=== PATIENT | male | born 1955 | race Caucasian/White ===

== ENCOUNTER 2017-01-21 10:33 | Outpatient (CLI) | payer OTHER ==
--- NOTE | 2017-01-21 11:51 | XRAY Report ---
THREE VIEW LEFT KNEE: 01/21/2017 CLINICAL HISTORY: Knee pain. FINDINGS: There is a small suprapatellar joint effusion. There is no acute fracture or focus of destruction. Multicompartment degenerative changes are noted with mediolateral and patellofemoral narrowing, subchondral sclerosis and osteophytic formation. There is mild chondrocalcinosis involving the medial and lateral compartments. IMPRESSION: 1. MULTICOMPARTMENT DEGENERATIVE CHANGES. 2. CHONDROCALCINOSIS - PROBABLE CPPD. JOB #: [id number] EXT JOB #: [id number] [facility]
== END 2017-01-21 10:34 | disposition home or self-care (01) ==
LOC: DI 10:33
PROVIDERS: ATTEND Nurse Practitioner Family
DX: M17.12 Unilateral primary osteoarthritis, left knee (principal); M11.262 Other chondrocalcinosis, left knee

== ENCOUNTER 2018-03-11 17:02 | Emergency (ER) | payer BC, OTHER ==
[2018-03-11 17:26] VITALS: BP 163/99
[2018-03-11] MEDS ORDERED: PROPARACAINE 0.5% OPHTH DROPS 15 ML LEFTEYE STA (17:40)
--- NOTE | 2018-03-11 17:53 | ED Physician Documentation ---
PD HPI OPHTHO - Stated complaint Stated Complaint: L EYE INJURY - Chief complaint Chief Complaint: Heent - History obtained from History obtained from: Patient - History of Present Illness Timing - onset: Yesterday Location: Left Associated symptoms: Redness Contributing factors: Blunt trauma Similar symptoms before: Has not had sx before - Additional information Additional information: The patient is a 62-year-old male who impacted his left eye on a tree branch yesterday when he turned his head into the tree branch. He denies any visual impairment, but presents because of increased redness of his left eye. He does not wear corrective lenses. Tetanus status is up-to-date. Review of Systems Eyes: reports: Irritation. denies: Decreased vision, Photophobia GI: denies: Nausea, Vomiting Neurologic: denies: Headache PD PAST MEDICAL HISTORY - Past Medical History Endocrine/Autoimmune: None - Allergies Allergies/Adverse Reactions: Allergies Allergy/AdvReac Type Severity Reaction Status Date / Time No Known Drug Allergies Allergy Verified 03/11/18 17:26 PD ED PE NORMAL - Vitals Vital signs reviewed: Yes (Initially hypertensive.) - General General: Alert and oriented X 3, Well developed/nourished - HEENT HEENT: PERRL, EOMI, Other (Scleral hemorrhage left eye.) - Neck Neck: No adenopathy - Respiratory Respiratory: No respiratory distress - Neuro Neuro: Alert and oriented X 3, No motor deficit, Normal speech PD ED PE EXPANDED - Eyes Eyes: Visual acuity - see nn (20/25 left eye), PERRL, Normal accommodation, EOMI , Left eye, Normal eyelids, No eyelid FB (everted), Subconj hemorrhage, Normal corneas, Fluorescein uptake (Conjunctival abrasion inferior to pupil.), Anterior chambers clear. No: Conj/sclera FB, Corneal FB, Corneal abrasion Results - Vitals Vitals: Vital Signs - 24 hr 03/11/18 17:23 Temperature 36.4 C L Heart Rate 67 Respiratory 18 Rate Blood Pressure 163/99 H O2 Saturation 98 Oxygen O2 Source Room air PD MEDICAL DECISION MAKING - ED course Complexity details: considered differential, d/w patient ED course: The patient's presentation is significant for scleral hemorrhage and for conjunctival abrasion, visualized on slit lamp exam. There is no evidence of corneal abrasion or foreign body, and no evidence of globe rupture. Treatment in the emergency department included application of erythromycin ophthalmic ointment. I discussed with the patient the expected course of injury, outpatient follow-up, as well as potentially worrisome signs or symptoms that should prompt reevaluation in the emergency department. - Sepsis Event Vital Signs: Vital Signs - 24 hr 03/11/18 17:23 Temperature 36.4 C L Heart Rate 67 Respiratory 18 Rate Blood Pressure 163/99 H O2 Saturation 98 Oxygen O2 Source Room air Departure - Departure Disposition: Home, Self Care Clinical Impression: Scleral hemorrhage of left eye Conjunctival abrasion Qualifiers: Encounter type: initial encounter Laterality: left Qualified Code(s): S05.02XA - Injury of conjunctiva and corneal abrasion without foreign body, left eye, initial encounter Condition: Stable Instructions: ED Eye Injury Subconj Hemorrhage Follow-Up: Don Quiroga MD [Provider Admit Priv/Credential] - Comments: Apply erythromycin ophthalmic ointment into your left eye 4 times daily for the next 2 days. Return to the emergency department if you develop increasing pain in your eye or visual impairment, or otherwise worsening symptoms. Discharge Date/Time: 03/11/18 18:16
[2018-03-11] MEDS ORDERED: ERYTHROMYCIN OPHTH OINT 1 GM TUBE LEFTEYE STA (18:04)
== END 2018-03-11 18:16 | disposition home or self-care (01) ==
LOC: ED 17:02
DX: H11.32 Conjunctival hemorrhage, left eye (principal); S05.02XA Injury of conjunctiva and corneal abrasion without foreign body, left eye, initial encounter; W22.8XXA Striking against or struck by other objects, initial encounter
CPT/HCPCS: 99282; J3490

== ENCOUNTER 2018-09-14 06:59 | Day surgery (SDC) | payer OTHER ==
[2018-09-14] MEDS ORDERED: LIDOCAINE 1%-EPI 1:100000 30 ML MDV ONE ×2 (07:25→08:37)
[2018-09-14] MEDS ORDERED: BUPIVACAINE 0.25% PF 10 ML VIAL ONE (07:25)
[2018-09-14] MEDS ORDERED: LACTATED RINGERS 1,000 ML IV ONE (07:30)
[2018-09-14] MEDS ORDERED: BUPIVACAINE 0.25% PF 30 ML VIAL SUBQ ONE ×3 (07:53→08:32)
--- NOTE | 2018-09-14 08:11 | ANESTHESIA ---
Pre-Anesthesia VS, & Labs - Diagnosis right carpal tunnel syndrome - Procedure right carpal tunnel release Vital Signs: Temp Pulse Resp BP Pulse Ox 36.4 C L 62 15 152/96 H 97 09/14/18 07:06 09/14/18 07:06 09/14/18 07:06 09/14/18 07:06 09/14/18 07:06 Height 6 ft 1 in Weight (kg) 90 kg Body Mass Index 27.7 - NPO >8 hours Home Medications and Allergies Home Medications: Ambulatory Orders Lisinopril 10 mg PO DAILY 09/09/18 Lisinopril 10 mg PO DAILY 09/09/18 Allergies/Adverse Reactions: Allergies Allergy/AdvReac Type Severity Reaction Status Date / Time No Known Drug Allergies Allergy Verified 03/11/18 17:26 Anes History & Medical History - Anesthetic History Anesthesia Complications: reports: No previous complications - Medical History Cardiovascular: reports: Hypertension Pulmonary: reports: None Gastrointestinal: reports: Colon polyps, Hemorrhoids Urinary: reports: Kidney stones Neuro: reports: None Musculoskeletal: reports: Osteoarthritis Endocrine/Autoimmune: reports: None Skin: reports: None Smoking Status: Current every day smoker (1 pack per day for 30 years) Psychosocial: reports: No issues indicated - Surgical History General: Colonoscopy Orthopedic: Arthroscopic surgery Exam Dental: Partials Upper, Partials Lower Mouth Openin Fingerbreadth Neck Mobility: Normal Mallampati classification: II Thyromental Distance: 4-6 cm Mental/Cognitive Status: Alert/Oriented X3, Normal for patient Plan Anesthesia Type: MAC Consent for Procedure(s) Verified and Reviewed: Yes Code Status: Attempt Resuscitation ASA classification: 2-Mild systemic disease Is this case an emergency?: No
[2018-09-14] MEDS ORDERED: LIDOCAINE 1%-EPI 1:100000 30 ML MDV SUBQ ONE ×2 (08:32)
[2018-09-14] MEDS ORDERED: HYDROcod/ACETAM 5/325 MG TABLET PO PRN (08:48)
[2018-09-14] MEDS ORDERED: ONDANSETRON 4 MG/2 ML VIAL IVP PRN (08:48)
[2018-09-14] MEDS ORDERED: PROPOFOL 200 MG/20 ML VIAL IVP ONE (08:54)
[2018-09-14] MEDS ORDERED: MIDAZOLAM 2 MG/2 ML VIAL IVP ONE (08:54)
[2018-09-14] MEDS ORDERED: fentaNYL 100 MCG/2 ML VIAL IVP ONE (08:54)
[2018-09-14 09:36] VITALS: BP 122/64
--- NOTE | 2018-09-14 12:25 | OPERATIVE REPORT ---
DATE OF SERVICE: 09/14/2018 Physician: Elias Barrera MD PREOPERATIVE DIAGNOSIS: Right carpal tunnel syndrome. PROCEDURE: Right carpal tunnel release. OPERATING SURGEON: Elias Barrera MD ANESTHESIA: Local MAC, Liat Mejia CRNA INDICATIONS FOR SURGERY: Patient is a 63-year-old male with progressive right carpal tunnel symptoms , who has a positive nerve test, nonresponse to conservative measures, and presents for carpal tunnel release. FINDINGS AT SURGERY: Patient's carpal tunnel was indeed constricted, and there was some reddened elsie thema of the nerve without any anatomic misshapen findings. DESCRIPTION OF OPERATIVE PROCEDURE: Patient was taken to the operating room, given a MAC anesthetic, followed by a carpal tunnel provocative utilizing 4 mL of 1% lidocaine with epinephrine and 0.25% Ma rcaine. Once this block was adequate, the 1-1/2 inch incision was made in the palm in line with the radial border of the ring finger third web. The incision was deepened through subcutaneous tissue an d the transverse carpal ligament was exposed. This ligament was divided longitudinally with the rele ase extending from the distal flexion crease of the wrist to the superficial arch in the palm. The n erve and its contents were inspected, flushed, and then irrigated and closed with 3-0 nylon interrupt ed in the palm. Sterile dressings were applied. The patient was taken to the recovery room in stabl e condition. ESTIMATED BLOOD LOSS: Minimal. COMPLICATIONS: None. COUNTS: Sponge and needle counts correct. TD: 09/14/2018 11:03
== END 2018-09-14 07:00 | disposition home or self-care (01) ==
LOC: SDS 06:59
PROVIDERS: ATTEND Orthopaedic Surgery
PROC: 01N50ZZ Release Median Nerve, Open Approach (ICD-10-PCS; principal; 2018-09-14 08:00)
DX: G56.01 Carpal tunnel syndrome, right upper limb (principal); I10 Essential (primary) hypertension; F17.210 Nicotine dependence, cigarettes, uncomplicated
CPT/HCPCS: 64721; J7120

== ENCOUNTER 2022-07-22 12:46 | Outpatient (CLI) | payer MEDICARE ==
--- NOTE | 2022-07-23 10:31 | CT Report ---
PROCEDURE: Low Dose Lung Cancer Screen INDICATIONS: TOBACCO USER TECHNIQUE: Noncontrast low-dose axial images were acquired from the pulmonary apices to the posterior costophren ic angles. Multiplanar MIP reformats were then reconstructed. For radiation dose reduction, the follo wing was used: automated exposure control, adjustment of mA and/or kV according to patient size. COMPARISON: None. FINDINGS: Image quality: Excellent. Lungs and pleura: A 5 mm nodule in the left middle lobe medially (series 4, image 160). There are r ight lower lobe scars and atelectasis. Mediastinum: Heart size is normal. No pericardial effusion. No mediastinal adenopathy by size crit eria. Thoracic aorta and central pulmonary arteries are normal in size. Esophagus is normal in brandon francesca. No hiatal hernia. Bones and chest wall: No suspicious bony lesions. No vertebral body compression fractures. No axil randy or supraclavicular adenopathy by size criteria. The thyroid is normal in size and there are no incidental findings. Abdomen: Visualized upper abdomen solid organs and bowel loops appear normal in the absence of contr ast. IMPRESSION: 1. A 5 mm nodule in the left middle lobe. ACR lung RADS category 3, probably benign. Recommend a foll ow-up CT in 6 months. Reviewed by: Randy Mora MD on 07/23/2022 10:30 AM [facility] Approved by: Randy Mora MD on 07/23/2022 10:30 AM [facility] Station ID: [id number]
== END 2022-07-22 12:47 | disposition home or self-care (01) ==
LOC: DI 12:46
PROVIDERS: ATTEND Nurse Practitioner Family
DX: Z12.2 Encounter for screening for malignant neoplasm of respiratory organs (principal); R91.1 Solitary pulmonary nodule; Z72.0 Tobacco use

== ENCOUNTER 2022-11-26 09:54 | Day surgery (SDC) | payer MEDICARE ==
[2022-11-26] MEDS ORDERED: LACTATED RINGERS 1,000 ML IV ONE (10:13)
[2022-11-26] MEDS ORDERED: LACTATED RINGERS 950 ML IV ONE (11:38)
--- NOTE | 2022-11-26 11:41 | ANESTHESIA ---
Pre-Anesthesia VS, & Labs - Diagnosis pos cologuard - Procedure colonoscopy Vital Signs: Temp Pulse Resp BP Pulse Ox O2 Flow Rate 36.2 C L 63 16 172/106 H 95 0 11/26/22 10:13 11/26/22 11:16 11/26/22 11:16 11/26/22 11:16 11/26/22 11:16 11/26/22 11:16 Height: 6 ft 1 in Weight (kg): 91.1 kg Body Mass Index: 26.4 BMI Classification: Overweight - NPO >8 hours Home Medications and Allergies Home Medications: Ambulatory Orders Acyclovir 1 cap PO PRN PRN 11/25/22 Losartan [Cozaar] 100 mg PO DAILY 11/25/22 Sildenafil Citrate [Sildenafil] 1 tab PO PRN PRN 11/25/22 Amoxicillin 500 mg PO PRN PRN 11/04/22 Acyclovir 1 cap PO PRN PRN 11/25/22 Losartan [Cozaar] 100 mg PO DAILY 11/25/22 Sildenafil Citrate [Sildenafil] 1 tab PO PRN PRN 11/25/22 Allergies/Adverse Reactions: Allergies Allergy/AdvReac Type Severity Reaction Status Date / Time No Known Drug Allergies Allergy Verified 11/26/22 10:21 Anes History & Medical History - Anesthetic History Anesthesia Complications: reports: No previous complications Family history of Anesthesia Complications: Denies Family history of Malignant Hyperthermia: Denies - Medical History Cardiovascular: reports: Hypertension (pt HTN, DBP>100 repeatedly. Pt recently changed BP med per PCP. Pt counseled to make an appointment with PCP to FU HTN and smoking cessation) Pulmonary: reports: None Gastrointestinal: reports: None Urinary: reports: None Neuro: reports: None Musculoskeletal: reports: Osteoarthritis Endocrine/Autoimmune: reports: None Skin: reports: None Smoking Status: Current every day smoker (1 pack per day for 30 years) Psychosocial: reports: Alcohol - Surgical History General: reports: Colonoscopy Eyes Ears Nose Throat (EENT): reports: Tonsil/Adenoidectomy Orthopedic: reports: Arthroscopic surgery Exam General: Alert, Oriented x3, Cooperative Dental: WNL Plan Anesthesia Type: Total IV Consent for Procedure(s) Verified and Reviewed: Yes Code Status: Attempt Resuscitation ASA classification: 3-Severe systemic disease Is this case an emergency?: No
[2022-11-26 13:16] VITALS: BP 174/92
--- NOTE | 2022-11-26 14:12 | ANESTHESIA POST OP EVALUATION ---
Anesthesia Post Eval - Post Anesthesia Eval Vitals: Last Vital Signs Temp 36.3 C L 11/26/22 12:38 Pulse 65 11/26/22 13:14 Resp 16 11/26/22 13:14 BP 174/92 H 11/26/22 13:14 Pulse Ox 96 11/26/22 13:14 O2 Flow Rate 0 11/26/22 11:16 CV Function Including HR & BP: Stable Pain Control: Satisfactory Nausea & Vomiting: Negative Mental Status: Baseline Respiratory Status: Airway Patent Hydration Status: Satisfactory Anesthesia Complications: None
== END 2022-11-26 09:55 | disposition home or self-care (01) ==
LOC: SDS 09:54
PROVIDERS: ATTEND Surgery
PROC: 0DBN8ZX Excision of Sigmoid Colon, Via Natural or Artificial Opening Endoscopic, Diagnostic (ICD-10-PCS; 2022-11-26)
PROC: 0DBP8ZX Excision of Rectum, Via Natural or Artificial Opening Endoscopic, Diagnostic (ICD-10-PCS; 2022-11-26)
PROC: 0DBM8ZX Excision of Descending Colon, Via Natural or Artificial Opening Endoscopic, Diagnostic (ICD-10-PCS; principal; 2022-11-26 11:15)
DX: Z12.11 Encounter for screening for malignant neoplasm of colon (principal); R19.5 Other fecal abnormalities; D12.4 Benign neoplasm of descending colon; D12.5 Benign neoplasm of sigmoid colon; K62.1 Rectal polyp; K63.5 Polyp of colon; K57.30 Diverticulosis of large intestine without perforation or abscess without bleeding; I10 Essential (primary) hypertension; F17.200 Nicotine dependence, unspecified, uncomplicated
CPT/HCPCS: 45380; 45381; 45385; J7120

== ENCOUNTER 2022-12-05 11:53 | Outpatient (CLI) | payer MEDICARE | END 2022-12-05 23:59 | disposition home or self-care (01) | LOC: LAB 11:53 | PROVIDERS: ATTEND Surgery | DX: Z53.9 Procedure and treatment not carried out, unspecified reason (principal) ==

== ENCOUNTER 2022-12-05 14:37 | Outpatient (CLI) | payer MEDICARE ==
[2022-12-05] MEDS ORDERED: iohexoL-300 100 ML VIAL ONE (14:56)
[2022-12-05] MEDS ORDERED: DIATR MEGLU/DIATRIZOATE SODIUM 120 ML BOTTLE ONE (14:56)
[2022-12-05 15:18] LABS: BASOPHILS % (AUTO) 0.5 %; EOSINOPHILS # (AUTO) 0.1 10^3/uL (0.0-0.7); EOSINOPHILS % (AUTO) 0.9 %; HCT - HEMATOCRIT 42.8 % (42.0-52.0); HGB - HEMOGLOBIN 14.7 g/dL (14.0-18.0); LYMPHOCYTES # (AUTO) 1.7 10^3/uL (1.5-3.5); LYMPHOCYTES % (AUTO) 20.7 %; MEAN CORPUSCULAR HEMOGLOBIN 31.6 pg (27.0-31.0); MEAN CORPUSCULAR HGB CONC 34.3 g/dL (32.0-36.0); MEAN PLATELET VOLUME 8.5 fL (7.4-11.4); MONOCYTES # (AUTO) 0.5 10^3/uL (0.0-1.0); MONOCYTES % (AUTO) 6.4 %; NEUTROPHILS # (AUTO) 5.7 10^3/uL (1.5-6.6); NEUTROPHILS % (AUTO) 71.3 %; PLT - PLATELET COUNT 282 10^3/uL (130-450); RED BLOOD COUNT 4.65 10^6/uL (4.70-6.10); RED CELL DISTRIBUTION WIDTH 13.6 % (12.0-15.0)
[2022-12-05 15:44] LABS: ALBUMIN/GLOBULIN RATIO 1.2 (1.0-2.2); BILIRUBIN,TOTAL 0.5 mg/dL (0.2-1.0); CALCIUM 9.1 mg/dL (8.5-10.3); POTASSIUM 4.1 mmol/L (3.5-5.0); TOTAL PROTEIN 7.4 g/dL (6.7-8.2)
[2022-12-05 15:58] LABS: CREATININE 0.9 mg/dL (0.6-1.2)
[2022-12-05] MEDS ORDERED: iohexoL-300 100 ML VIAL IVP ONE (19:05)
--- NOTE | 2022-12-05 22:34 | CT Report ---
PROCEDURE: ABDOMEN/PELVIS W INDICATIONS: SIGMOID COLON CA CONTRAST: 100ml omni 300 TECHNIQUE: After the administration of IV contrast, 5 mm thick sections acquired from the diaphragms to the symp hysis. 5 mm thick coronal and sagittal reformats were acquired. For radiation dose reduction, the f ollowing was used: automated exposure control, adjustment of mA and/or kV according to patient size. COMPARISON: None FINDINGS: Image quality: Excellent. Lung bases and heart: Unremarkable. Liver: Liver is enlarged measuring 23.1 cm with steatosis. There are 2 low-attenuation foci within th e anterior liver most consistent with simple cysts. Gallbladder and biliary tree: Unremarkable Spleen: No splenomegaly. Pancreas: No pancreatic ductal dilation. Adrenals: Slight appearance of left adrenal thickening. Kidneys and ureters: No hydronephrosis. Simple bilateral renal cysts.. No solid mass. Bowel and peritoneum: No bowel distension. No pathologic free fluid. Colonic diverticula are present. Appendix is normal. Lymph nodes: No central or retroperitoneal adenopathy. Vessels: No infrarenal aortic aneurysm. PELVIS Reproductive organs: Unremarkable. Bladder: No abnormal wall thickening, accounting for underdistension. Pelvic lymph nodes: No pelvic adenopathy by size criteria. Bones: No aggressive osseous abnormality. Other: Fat-containing ventral hernia. No inguinal hernia. IMPRESSION: No visualized sigmoid mass. No visualized metastatic disease. Diverticulosis. Reviewed by: Tata Esqueda MD on 12/05/2022 10:32 PM PDT Approved by: Tata Esqueda MD on 12/05/2022 10:32 PM PDT Station ID: [id number]
== END 2022-12-05 14:38 | disposition home or self-care (01) ==
LOC: DI 14:37
PROVIDERS: ATTEND Surgery
DX: C18.7 Malignant neoplasm of sigmoid colon (principal); R97.0 Elevated carcinoembryonic antigen [CEA]; R68.89 Other general symptoms and signs; K57.30 Diverticulosis of large intestine without perforation or abscess without bleeding
CPT/HCPCS: 36415; 74177; 80053; 82378; 85025; Q9967

== ENCOUNTER 2023-01-20 09:50 | Outpatient (CLI) | payer MEDICARE ==
--- NOTE | 2023-01-20 16:43 | CT Report ---
PROCEDURE: Low Dose Lung Cancer Screen INDICATIONS: PULMONARY NODULE TECHNIQUE: A CT scan of the chest was performed. Intravenous contrast media was not administered. Images were re corded and evaluated at appropriate window settings. Reformats: axial MIP of the chest, coronal and s agittal. For radiation dose reduction, the following was used: automated exposure control, adjustment of mA and/or kV according to patient size. COMPARISON: 07/22/2022 FINDINGS: Image quality: Good, allowing for low radiation dose Lungs and pleura:Stable left medial lung nodule (3/169). Scattered scarring and atelectasis. A more f ocal area of thickening is seen in the right lower lobe measuring 6 mm, slightly increased (3/250). No airspace disease or pleural effusion. Mediastinum, heart, and esophagus: No hiatal hernia. No pathologic lymph nodes by size criteria. Chest wall and thyroid: Thyroid is unremarkable. Chest wall is unremarkable. Suspected left chest wal l lipoma. Upper abdomen: Suspected liver and renal cysts. Unchanged adrenal thickening versus adenomas. No jose s abnormality otherwise on this noncontrast low-dose CT. Bones: Degenerative changes, no acute or suspicious osseous finding. IMPRESSION: Previously described left medial lung nodule is stable. However, at the right lung base, there is a f ocal area of nodularity/pleural thickening that seems slightly increased from prior, measuring 6 mm i n thickness (3/250)). Lung RADS 3: Probably benign. Another six-month follow-up is recommended. Other findings as above. Reviewed by: James Hercules MD on 01/20/2023 4:42 PM PDT Approved by: James Hercules MD on 01/20/2023 4:42 PM PDT Station ID: [id number]
== END 2023-01-20 09:51 | disposition home or self-care (01) ==
LOC: DI 09:50
PROVIDERS: ATTEND Nurse Practitioner Family
DX: R91.1 Solitary pulmonary nodule (principal); R91.8 Other nonspecific abnormal finding of lung field

== ENCOUNTER 2023-05-29 10:27 | Outpatient (CLI) | payer MEDICARE ==
--- NOTE | 2023-05-29 15:23 | XRAY Report ---
PROCEDURE: Finger(s) RT INDICATIONS: RIGHT RING FINGER LACERATION TECHNIQUE: AP hand, 2 views of the fourth finger(s) acquired. COMPARISON: None FINDINGS: Bones: No fractures or dislocations. No suspicious bony lesions. Soft tissues: No suspicious soft tissue calcifications. Soft tissue swelling without radiopaque for eign body IMPRESSION: Soft tissue swelling without radiopaque foreign body Reviewed by: Timothy Maza MD on 05/29/2023 2:22 PM [facility] Approved by: Timothy Maza MD on 05/29/2023 2:22 PM [facility] Station ID: [id number]
== END 2023-05-29 10:28 | disposition home or self-care (01) ==
LOC: DI.S 10:27
PROVIDERS: ATTEND Emergency Medicine
DX: S61.214A Laceration without foreign body of right ring finger without damage to nail, initial encounter (principal)

== ENCOUNTER 2023-07-22 09:19 | Outpatient (CLI) | payer MEDICARE ==
--- NOTE | 2023-07-22 12:27 | CT Report ---
PROCEDURE: Lung Cancer Screen INDICATIONS: LUNG NODULE TECHNIQUE: A CT scan of the chest was performed. Intravenous contrast media was not administered. Images were re corded and evaluated at appropriate window settings. Reformats: axial MIP of the chest, coronal and s agittal. For radiation dose reduction, the following was used: automated exposure control, adjustment of mA and/or kV according to patient size. COMPARISON: CT lung screening 01/20/2023, 07/22/2022 FINDINGS: Image quality: Excellent. Prior cancer history: None Lungs and pleura: Previously identified left mid lobe nodule measuring 3 mm is unchanged on series 4 image 53. Mild appearance of pleural thickening within the right lower lobe has become slightly more nodular in appearance. As seen on series 4 image 90. Mediastinum: Heart size is normal. No pericardial effusion. No large vessel abnormality. No mediastin al adenopathy by size criteria. Chest wall and lower neck: Thyroid is unremarkable. No axillary or supraclavicular adenopathy by size . Bones: No aggressive osseous abnormality. Upper Abdomen: Unremarkable. IMPRESSION: Right lower lobe pleural-based opacity has a more nodular appearance compared to prior exam. Previous identified left mid lobe nodule is unchanged. Lung RAD: 3 - Probably Benign. Recommendation: 6 month interval follow-up due to change in appearance of right lower lobe pleural-ba sed opacity. Reviewed by: Tata Esqueda MD on 07/22/2023 12:26 PM PST Approved by: Tata Esqudea MD on 07/22/2023 12:26 PM PST Station ID: [id number]
== END 2023-07-22 09:20 | disposition home or self-care (01) ==
LOC: DI 09:19
PROVIDERS: ATTEND Nurse Practitioner Family
DX: Z12.2 Encounter for screening for malignant neoplasm of respiratory organs (principal); R91.1 Solitary pulmonary nodule

== ENCOUNTER 2024-01-15 08:07 | Outpatient (CLI) | payer MEDICARE ==
--- NOTE | 2024-01-15 16:30 | CT Report ---
PROCEDURE: Lung Cancer Screen INDICATIONS: TOBACCO USER TECHNIQUE: A CT scan of the chest was performed. Intravenous contrast media was not administered. Images were re corded and evaluated at appropriate window settings. Reformats: axial MIP of the chest, coronal and s agittal. For radiation dose reduction, the following was used: automated exposure control, adjustment of mA and/or kV according to patient size. COMPARISON: Similar screening CT 01/20/2023. FINDINGS: Image quality: Excellent. Prior cancer history: None. Lungs and pleura: No pleural effusions. No pneumothorax. No suspicious pulmonary nodules which requi re follow up. Note is made of mild alveolar scarring at the posterior deep costophrenic sulcus of the posterior inferior alveolar. This likely reflects sequela of prior inflammatory event in that area. This was previously present. Mediastinum: Heart size is normal. No pericardial effusion. No large vessel abnormality. No mediastin al adenopathy by size criteria. Chest wall and lower neck: Thyroid is unremarkable. No axillary or supraclavicular adenopathy by size . Bones: No aggressive osseous abnormality. Upper Abdomen: Unremarkable. IMPRESSION: Mild chronic posterior right lung base alveolar scarring. This was previously present. Lung RAD: Category 1 Recommendation: Follow-up low-dose noncontrast screening CT is recommended in 1 year. Reviewed by: Jim Miller MD on 01/15/2024 4:28 PM PDT Approved by: Jim Miller MD on 01/15/2024 4:28 PM PDT Station ID: [id number]
== END 2024-01-15 08:08 | disposition home or self-care (01) ==
LOC: DI 08:07
PROVIDERS: ATTEND Nurse Practitioner Family
DX: Z12.2 Encounter for screening for malignant neoplasm of respiratory organs (principal); Z72.0 Tobacco use